=== PATIENT | female | born 1990 | race Caucasian/White ===

== ENCOUNTER 2018-05-12 13:23 | Emergency (ER) | payer OTHER ==
[~2018-05-12 13:23] MED LIST: ISOVUE-370 76%-LOCM 1 ML ONE
[2018-05-12 16:08] LABS: Pregnancy Test - Urine (BHCG) Negative (Negative); Pregu Control Background? CLEAR/WHITE (CLR/WHITE); Pregu Control Bar Appear? YES (CONTROL BAR); Specific Gravity 1.019 (1.002-1.036)
[2018-05-12] MEDS ORDERED: Ketorolac Tromethamine 30 MG/ML VIAL ONE (16:21)
[2018-05-12] MEDS ORDERED: Morphine 4 MG/ML VIAL ONE ×2 (17:01→19:04)
[2018-05-12 17:36] LABS: #Basophils 0.1 thou/uL (0.0-0.2); #Lymphocytes 2.9 thou/uL (1.20-3.40); #Monocytes 0.3 thou/uL (0.11-0.59); #Neutrophils 5.4 thou/uL (1.40-6.50); %Basophils 0.9 % (0.0-1.0); %Eosinophils 0.3 % (0.0-10.0); %Lymphocytes 33.4 % (21.0-51.0); %Monocytes 3.6 % (0.0-10.0); %Neutrophils 61.9 % (42.0-75.0); Hemoglobin 14.3 g/dL (12.0-16.0); Mean Corpuscular HGB CONC 33.5 g/dL (32.0-36.0); Mean Corpuscular Hemoglobin 29.7 pg (27.0-31.0); Mean Corpuscular Volume 88.5 fL (78.0-98.0); Mean Platelet Volume 7.2 fL (7.4-10.4); Platelet Count 291 thou/uL (130-400); RBC Distribution Width 12.4 % (11.5-14.5); Red Blood Cell (RBC) Count 4.81 mill/uL (4.20-5.40); White Blood Cell (WBC) Count 8.7 thou/uL (4.8-10.8)
--- NOTE | 2018-05-12 17:55 | CT ---
LUMBAR SPINE CT 05/12/18 HISTORY: Fall, trauma, pain. TECHNIQUE: Axial CT imaging at 2.5 mm intervals through the lumbar spine without contrast. Coronal and sagittal reformatted imaging obtained. FINDINGS/IMPRESSION: Evaluation of the nonosseous structures is limited on routine CT. Evaluation for central canal and/or neural foraminal stenosis is limited on routine CT as well. There is no anterolisthesis or retrolisthesis within the lumbar spine. There is disc space narrowing with degenerative end plate change noted posteriorly at T12-L1 with a small disc osteophyte complex. There is no displaced fracture or evidence of dislocation. There is no osseous cause of significant c entral canal or neural foraminal stenosis. No worrisome lytic or blastic bone lesion. Of note, there is prominent free fluid within the imaged right lower quadrant/right hemipelvis, great er than expected for simple physiologic fluid. Further assessment via CT examination of abdomen/pelvi s suggested given history of trauma and unexplained free fluid. Results called to Dr. Brewer 4:45 p.m., 05/12/18. Code CR
[2018-05-12 17:59] LABS: ALT (SGPT) 19 U/L (8-55); AST (SGOT) 15 U/L (5-34); Albumin 4.6 g/dL (3.5-5.0); Alkaline Phosphatase 72 U/L (40-150); Anion Gap 15 mmol/L (10-20); BUN (Urea Nitrogen) 15 mg/dL (7.0-18.7); Bilirubin, Total 0.5 mg/dL (0.2-1.2); Calc. Creatinine Clearance 0 mL/min (70-130); Calcium 9.4 mg/dL (7.8-10.44); Carbon Dioxide 21 mmol/L (22-29); Chloride 107 mmol/L (98-107); Estimated GFR-MDRD 76; Glucose 87 mg/dL (70-105); Potassium 3.6 mmol/L (3.5-5.1); Protein, Total 7.6 g/dL (6.0-8.3); Sodium 139 mmol/L (136-145)
--- NOTE | 2018-05-12 20:05 | CT ---
CT ABDOMEN AND PELVIS WITH CONTRAST: HISTORY: Back pain. The patient has free fluid in the abdomen. COMPARISON: None. TECHNIQUE: Multiple contiguous axial images were obtained in a CT of the abdomen and pelvis without contrast. C oronal reformats were performed. FINDINGS: There is a small amount of free fluid in the pelvis. The reproductive organs are unremarkable. Mult iple follicles are seen in both ovaries. This free fluid is likely physiologic. No free air or stra nding changes are seen in the abdomen or pelvis. The liver, gallbladder, kidneys, adrenal glands, spleen, and pancreas are unremarkable. The large and small bowel are unremarkable. The appendix is not definitely seen. The osseous structures are unremarkable. No fractures are identified. The soft tissues of the abdom en and back are unremarkable. The visualized inferior thorax is unremarkable. IMPRESSION: No evidence of acute intraabdominal/pelvic abnormality. POS: C
== END 2018-05-12 20:02 | disposition home or self-care (01) ==
LOC: ERS 13:23
DX: M54.41 Lumbago with sciatica, right side (principal); F41.9 Anxiety disorder, unspecified; F17.210 Nicotine dependence, cigarettes, uncomplicated; Z79.899 Other long term (current) drug therapy
CPT/HCPCS: 72131; 74177; 80053; 81025; 85025; 96372; 96374; 96376; J1885; J2270